=== PATIENT | male | born 1960 | race Caucasian/White ===

== ENCOUNTER 2016-10-11 08:46 | Emergency (ER) | payer OTHER ==
[~2016-10-11 08:46] MED LIST: LIPITOR 10M10 MG/TAB; LISINOPRIL20 MG PO; PRAVASTATIN20 MG PO; SINGULAIR4 MG/PACKE PO; ZYRTEC10 M2 PO
== END 2016-10-11 13:12 | disposition home or self-care (01) ==
LOC: ED 08:46
DX: J09.X2 Influenza due to identified novel influenza A virus with other respiratory manifestations (principal); R55 Syncope and collapse; E86.0 Dehydration; E87.1 Hypo-osmolality and hyponatremia
CPT/HCPCS: J7030; J7120